=== PATIENT | male | born 1990 | race Caucasian/White ===

== ENCOUNTER 2018-07-25 06:40 | Emergency (ER) | payer OTHER ==
--- NOTE | 2018-07-25 07:35 | ED.PDOC ---
History of Present Illness - General Chief Complaint: General Stated Complaint: Pt states he has a bug in his left ear Time Seen by Provider: 07/25/18 07:28 Source: patient Exam Limitations: no limitations - History of Present Illness Initial Comments: patient was awakened by severe pain and buzzing in his left ear. Since he started coming to the ER the buzzing stopped and pain is minimal. He is concerned there is a bug in his ear. No fever, no chills, no cough, no cold symptoms. Timing/Duration: 1-3 hours Severity: mild Improving Factors: nothing Worsening Factors: nothing Associated Symptoms: denies symptoms Allergies/Adverse Reactions: Allergies NO KNOWN ALLERGY Allergy (Verified 07/25/18 07:16) Home Medications: Ambulatory Orders Ofloxacin (Otic) [Floxin Otic] 10 drop LEFT_EAR DAILY 7 Days #1 bottle 07/25/18 Review of Systems - Review of Systems Constitutional: States: no symptoms reported. Denies: chills, fever EENTM: States: see HPI, ear pain Respiratory: States: no symptoms reported. Denies: cough Cardiology: States: no symptoms reported Gastrointestinal/Abdominal: States: no symptoms reported Past Medical History (General) - Patient Medical History Hx Stroke: No Hx of COPD: No Hx Cardiac Disorders: No Hx Hypertension: No Hx Diabetes: No Hx Cancer: No Surgical History: no surgical history - Vaccination History Hx Tetanus, Diphtheria Vaccination: No Hx Influenza Vaccination: No Hx Pneumococcal Vaccination: No - Social History Hx Tobacco Use: No Hx Alcohol Use: Yes Hx Substance Use: No Hx Substance Use Treatment: No Hx Depression: No - Female History Patient is a Female of Child Bearing Age (10 -59 yrs old): No Patient : No Family Medical History - Family History Mother Living Status: Unknown Hx Family Diabetes: Yes Father Living Status: Unknown Hx Cardiac Disease: Yes Physical Exam - Physical Exam General Appearance: Alert, Comfortable Ears, Nose, Throat: other - L ear with large amounts of cerumen removed. Canal has some erythema and edema no FB seen. TM clear Neck: non-tender, full range of motion Respiratory: chest non-tender, lungs clear, normal breath sounds Cardiovascular/Chest: normal peripheral pulses, regular rate, rhythm Progress - Progress Progress: 07/25/18 07:35 ear was irrigated with no FB. TM clear but otitis externa is present Departure - Departure Clinical Impression: Otitis externa Qualifiers: Otitis externa type: unspecified type Chronicity: acute Laterality: left Qualified Code(s): H60.502 - Unspecified acute noninfective otitis externa, left ear Disposition: Discharge to Home or Self Care Condition: Good Departure Forms: ED Discharge - Pt. Copy, Patient Portal Self Enrollment Prescriptions: Ofloxacin (Otic) [Floxin Otic] 10 drop LEFT_EAR DAILY 7 Days #1 bottle Home Medications: Ambulatory Orders Ofloxacin (Otic) [Floxin Otic] 10 drop LEFT_EAR DAILY 7 Days #1 bottle 07/25/18 Additional Instructions: follow up for increased pain, temp or decreased hearing
[2018-07-25 07:44] VITALS: BP 119/72; TEMP 97.2; O2SAT 97
== END 2018-07-25 07:44 | disposition home or self-care (01) ==
LOC: ER 06:40
DX: H60.502 Unspecified acute noninfective otitis externa, left ear (principal)